=== PATIENT | male | born 1995 | race African-American/Black ===

== ENCOUNTER 2018-05-19 00:30 | Emergency (ER) | payer MEDICAID ==
[~2018-05-19] VITALS: Ht 175.3 cm; Wt 60.0 kg
[~2018-05-19 00:30] MED LIST: BUPR75TA3; OLAN5TAB3; SEROQUEL
[2018-05-19] MEDS ORDERED: ACETAMINOPHEN 325MG TABLET PO STA ×2 (01:11→06:48)
[2018-05-19 01:52] LABS: BASOPHILS % 0.5 % (0.0-2.0); EOSINOPHILS % 5.3 % (0.0-5.0); HEMATOCRIT. 48.1 % (42.0-52.0); HEMOGLOBIN. 15.9 g/dL (14.0-18.0); LYMPHOCYTES % 28.6 % (20.0-50.0); MEAN CORPUSCULAR HEMOGLOBIN 29.1 pg (28.0-32.0); MEAN CORPUSCULAR VOLUME 88.1 fL (80.0-94.0); MEAN PLATELET VOLUME 8.6 fl (7.4-10.4); MONOCYTES % 9.4 % (2.0-8.0); NEUTROPHILS % 56.2 % (40.0-76.0); PLATELET 206 x1000/uL (130-400); RED BLOOD CELL COUNT 5.46 mill/uL (4.7-6.1); RED CELL DISTRIBUTION WIDTH 14.2 % (11.6-14.6)
[2018-05-19 01:54] LABS: CHLORIDE 108 mEq/L (98-107)
[2018-05-19 01:59] LABS: ETHANOL BLOOD < 10 mg/dL
[2018-05-19 02:04] LABS: CLARITY URINE CLEAR (CLEAR); COLOR URINE YELLOW (YELLOW); KETONES URINE TRACE (NEGATIVE); LEUKOCYTE ESTERASE URINE TRACE (NEGATIVE); NITRITE URINE NEGATIVE (NEGATIVE); OCCULT BLOOD URINE NEGATIVE (NEGATIVE); PROTEIN URINE NEGATIVE (NEGATIVE); SPECIFIC GRAVITY URINE 1.029 (1.005-1.030)
[2018-05-19 02:14] LABS: *AMPHETAMINES SCREEN URINE NEGATIVE (NEGATIVE); *BARBITURATES SCREEN URINE NEGATIVE (NEGATIVE); *BENZODIAZEPINES SCREEN URINE NEGATIVE (NEGATIVE); *COCAINE SCREEN URINE NEGATIVE (NEGATIVE)
[2018-05-19 02:15] LABS: CANNABINOID URINE SCREEN PRESUMTIVE POSITIVE (NEGATIVE); METHADONE URINE SCREEN NEGATIVE (NEGATIVE); OPIATES URINE SCREEN NEGATIVE (NEGATIVE); PHENCYCLIDINE URINE SCREEN NEGATIVE (NEGATIVE)
[2018-05-19] MEDS ORDERED: IBUPROFEN 600MG TABLET PO ONE (04:15)
[2018-05-19 06:44] VITALS: BP 114/70
== END 2018-05-19 07:18 | disposition home or self-care (01) ==
LOC: ER 00:30
DX: R51 Headache (principal); F12.10 Cannabis abuse, uncomplicated; M25.512 Pain in left shoulder; M25.511 Pain in right shoulder
CPT/HCPCS: 36415; 70450; 80053; 80305; 80307; 80329; 81003; 85025; 99285; G0482

== ENCOUNTER 2020-06-29 10:30 | Emergency (ER) | payer MEDICAID ==
[~2020-06-29] VITALS: Ht 177.8 cm; Wt 79.0 kg
[2020-06-29 11:44] LABS: BASOPHILS % 0.6 % (0.0-2.0); EOSINOPHILS % 2.5 % (0.0-5.0); HEMATOCRIT. 46.4 % (42.0-52.0); HEMOGLOBIN. 15.2 g/dL (14.0-18.0); LYMPHOCYTES % 24.9 % (20.0-50.0); MEAN CORPUSCULAR HEMOGLOBIN 28.8 pg (28.0-32.0); MEAN CORPUSCULAR VOLUME 87.8 fL (80.0-94.0); MEAN PLATELET VOLUME 8.1 fl (7.4-10.4); MONOCYTES % 8.8 % (2.0-8.0); NEUTROPHILS % 63.2 % (40.0-76.0); PLATELET 227 x1000/uL (130-400); RED BLOOD CELL COUNT 5.28 mill/uL (4.7-6.1); RED CELL DISTRIBUTION WIDTH 13.5 % (11.6-14.6)
[2020-06-29 11:52] LABS: CHLORIDE 107 mEq/L (98-107)
[2020-06-29 12:00] LABS: ETHANOL BLOOD < 10 mg/dL
[2020-06-29 12:48] LABS: CLARITY URINE CLEAR (CLEAR); COLOR URINE YELLOW (YELLOW); KETONES URINE 2+ (NEGATIVE); LEUKOCYTE ESTERASE URINE NEGATIVE (NEGATIVE); NITRITE URINE NEGATIVE (NEGATIVE); OCCULT BLOOD URINE NEGATIVE (NEGATIVE); PROTEIN URINE NEGATIVE (NEGATIVE); SPECIFIC GRAVITY URINE 1.023 (1.005-1.030)
[2020-06-29 13:01] LABS: OPIATES URINE SCREEN NEGATIVE (NEGATIVE)
[2020-06-29 13:02] LABS: *BENZODIAZEPINES SCREEN URINE NEGATIVE (NEGATIVE); *COCAINE SCREEN URINE NEGATIVE (NEGATIVE); CANNABINOID URINE SCREEN PRESUMTIVE POSITIVE (NEGATIVE); PHENCYCLIDINE URINE SCREEN NEGATIVE (NEGATIVE)
[2020-06-29 13:04] LABS: *AMPHETAMINES SCREEN URINE PRESUMTIVE POSITIVE (NEGATIVE)
[2020-06-29 13:05] LABS: *BARBITURATES SCREEN URINE NEGATIVE (NEGATIVE)
[2020-06-29 13:06] LABS: METHADONE URINE SCREEN NEGATIVE (NEGATIVE)
[2020-06-30] MEDS ORDERED: OLANZAPINE 5MG TABLET ODT PO ONE (08:00)
[2020-06-30] MEDS ORDERED: LORAZEPAM 1MG TABLET PO ONE (08:00)
[2020-06-30] MEDS: LORAZEPAM 1MG TABLET PO SCH (17:30)
[2020-06-30] MEDS: OLANZAPINE 5MG TABLET PO SCH (17:30)
[2020-07-01] MEDS: LORAZEPAM 1MG TABLET PO SCH (09:13)
[2020-07-01] MEDS: OLANZAPINE 5MG TABLET PO SCH (09:13)
[2020-07-01 10:03] VITALS: BP 111/69
== END 2020-07-01 10:06 | disposition home or self-care (01) ==
LOC: ER 10:30
DX: Z03.818 Encounter for observation for suspected exposure to other biological agents ruled out (principal); F23 Brief psychotic disorder; R45.851 Suicidal ideations; F19.10 Other psychoactive substance abuse, uncomplicated; F15.10 Other stimulant abuse, uncomplicated
CPT/HCPCS: 36415; 80053; 80305; 80307; 80320; 80329; 81003; 85025; 87635; 99285; G0480

== ENCOUNTER 2020-07-07 20:13 | Emergency (ER) | payer MEDICAID ==
[~2020-07-07] VITALS: Ht 182.9 cm; Wt 82.0 kg
[2020-07-07 21:26] VITALS: BP 120/77
== END 2020-07-07 22:01 | disposition home or self-care (01) ==
LOC: ER 20:13
DX: R45.851 Suicidal ideations (principal); I49.9 Cardiac arrhythmia, unspecified; Z86.59 Personal history of other mental and behavioral disorders
CPT/HCPCS: 93005; 99283

== ENCOUNTER 2020-08-11 22:18 | Emergency (ER) | payer MEDICAID ==
[~2020-08-11] VITALS: Ht 175.3 cm; Wt 84.0 kg
[2020-08-12] MEDS ORDERED: LORAZEPAM 1MG TABLET PO ONE (00:30)
[2020-08-12] MEDS ORDERED: OLANZAPINE 5MG TABLET ODT PO ONE (00:30)
[2020-08-12 00:36] LABS: CLARITY URINE CLEAR (CLEAR); COLOR URINE YELLOW (YELLOW); KETONES URINE NEGATIVE (NEGATIVE); LEUKOCYTE ESTERASE URINE NEGATIVE (NEGATIVE); NITRITE URINE NEGATIVE (NEGATIVE); OCCULT BLOOD URINE NEGATIVE (NEGATIVE); PH URINE 5.5 (4.5-8.0); PROTEIN URINE NEGATIVE (NEGATIVE); SPECIFIC GRAVITY URINE 1.019 (1.005-1.030)
[2020-08-12 00:50] LABS: *AMPHETAMINES SCREEN URINE NEGATIVE (NEGATIVE); *BARBITURATES SCREEN URINE NEGATIVE (NEGATIVE); *BENZODIAZEPINES SCREEN URINE NEGATIVE (NEGATIVE); *COCAINE SCREEN URINE NEGATIVE (NEGATIVE); METHADONE URINE SCREEN NEGATIVE (NEGATIVE)
[2020-08-12 00:51] LABS: CANNABINOID URINE SCREEN NEGATIVE (NEGATIVE); OPIATES URINE SCREEN NEGATIVE (NEGATIVE); PHENCYCLIDINE URINE SCREEN NEGATIVE (NEGATIVE)
[2020-08-12 01:50] LABS: BASOPHILS % 0.9 % (0.0-2.0); EOSINOPHILS % 6.3 % (0.0-5.0); HEMATOCRIT. 48.9 % (42.0-52.0); LYMPHOCYTES % 38.5 % (20.0-50.0); MEAN CORPUSCULAR HEMOGLOBIN 28.7 pg (28.0-32.0); MEAN CORPUSCULAR VOLUME 87.8 fL (80.0-94.0); MEAN PLATELET VOLUME 7.9 fl (7.4-10.4); MONOCYTES % 9.4 % (2.0-8.0); NEUTROPHILS % 44.9 % (40.0-76.0); PLATELET 254 x1000/uL (130-400); RED BLOOD CELL COUNT 5.57 mill/uL (4.7-6.1); RED CELL DISTRIBUTION WIDTH 14.2 % (11.6-14.6)
[2020-08-12 04:01] LABS: CHLORIDE 109 mEq/L (98-107); ETHANOL BLOOD < 10 mg/dL
[2020-08-12 09:01] VITALS: BP 107/67
== END 2020-08-12 09:12 | disposition home or self-care (01) ==
LOC: ER 22:18
DX: F32.9 Major depressive disorder, single episode, unspecified (principal); Z59.0 Homelessness; F20.9 Schizophrenia, unspecified; Z91.14 Patient's other noncompliance with medication regimen
CPT/HCPCS: 36415; 71045; 80053; 80305; 80307; 80320; 80329; 81003; 85025; 93005; 99285; G0480

== ENCOUNTER → 2024-06-13 | Emergency (ER) | payer MEDICAID ==
[~2024-06-13] VITALS: Ht 182.9 cm; Wt 79.0 kg
[2024-06-13 03:30] VITALS: O2SAT 98
[2024-06-13 04:34] LABS: BASOPHILS % 0.8 % (0.0-2.0); EOSINOPHILS % 3.5 % (0.0-5.0); HEMATOCRIT. 50.2 % (42.0-52.0); HEMOGLOBIN. 16.5 g/dL (14.0-18.0); LYMPHOCYTES % 31.3 % (20.0-50.0); MEAN CORPUSCULAR HGB CONC 32.9 g/dL (31.0-37.0); MEAN CORPUSCULAR VOLUME 84.8 fL (80.0-94.0); MONOCYTES % 10.7 % (2.0-8.0); NEUTROPHILS % 53.7 % (40.0-76.0); PLATELET 236 x1000/uL (130-400); RED BLOOD CELL COUNT 5.92 mill/uL (4.7-6.1); RED CELL DISTRIBUTION WIDTH 14.7 % (11.6-14.6); WHITE BLOOD COUNT 7.2 x1000/uL (4.5-11.0)
[2024-06-13 04:39] LABS: CARBON DIOXIDE 26 mEq/L (21-32); CHLORIDE 108 mEq/L (98-107); POTASSIUM 3.7 mEq/L (3.5-5.1); SODIUM 141 mEq/L (136-145)
[2024-06-13 04:40] LABS: CALCIUM 9.8 mg/dL (8.7-10.4)
[2024-06-13 04:42] LABS: *AMPHETAMINES SCREEN URINE PRESUMPTIVE POSITIVE (NEGATIVE); *BARBITURATES SCREEN URINE NEGATIVE (NEGATIVE); *BENZODIAZEPINES SCREEN URINE NEGATIVE (NEGATIVE); *COCAINE SCREEN URINE NEGATIVE (NEGATIVE); METHADONE URINE SCREEN NEGATIVE (NEGATIVE); OPIATES URINE SCREEN NEGATIVE (NEGATIVE)
[2024-06-13 04:43] LABS: CANNABINOID URINE SCREEN NEGATIVE (NEGATIVE); ECSTASY MDMA SCREEN URINE NEGATIVE (NEGATIVE); PHENCYCLIDINE URINE SCREEN NEGATIVE (NEGATIVE)
[2024-06-13 04:45] LABS: CREATININE 1.2 mg/dL (0.6-1.3); GLUCOSE 99 mg/dL (70-105); UREA NITROGEN BLOOD 13 mg/dL (9-23)
[2024-06-13 04:46] LABS: ACETAMINOPHEN < 2 ug/mL (10-30)
[2024-06-13 04:47] LABS: ETHANOL BLOOD < 10 mg/dL (<10)
[2024-06-14 16:00] VITALS: TEMP 36.94740
[2024-06-14 17:17] VITALS: BP 103/75; PULSE 92; RESP 16; O2SAT 98
== END ==
LOC: ER 03:23
DX: T43.621A Poisoning by amphetamines, accidental (unintentional), initial encounter (principal); F23 Brief psychotic disorder; Z20.822 Contact with and (suspected) exposure to COVID-19; X58.XXXA Exposure to other specified factors, initial encounter
CPT/HCPCS: 80305; 80048; 80307; 80329; 80320; 85025; 36415; 93005; 99285; 87426; Z7610; G0480